=== PATIENT | male | born 1985 | race Two or more races ===

== ENCOUNTER 2019-10-31 15:56 | Emergency (ER) | payer SELFPAY ==
--- NOTE | 2019-10-31 16:04 | EDM.PDOC ---
ED HPI GENERAL MEDICAL PROBLEM - General Chief Complaint: ENT Problem Stated Complaint: THROAT AND EARS Time Seen by Provider: 10/31/19 15:58 Source of Information: Reports: Patient History Limitations: Reports: No Limitations - History of Present Illness INITIAL COMMENTS - FREE TEXT/NARRATIVE: HISTORY AND PHYSICAL: History of present illness: Patient is a 33-year-old male who presents to the emergency room with complaints of sore throat and swelling. He reports he was previously seen in the clinic and was given a one-time dose of the medication, he is unsure of what the m edication was but did not receive any prescriptions. He states his throat pain has worsened and he feels like he has some soft tissue swelling and is more painful to swallow. Patient denies any fever, chills, headache, change in vision, syncope or near syncope. Denies any chest pain, back pain, shortness of breath or cough. He denies any drooling or difficulty swallowing his saliva. Denies any abdominal pain, nausea, vomiting, diarrhea, constipation or dysuria. Has not noted any blood in urine or stool. Patient has been eating and drinking appropriately. Review of systems: As per history of present illness and below otherwise all systems reviewed and negative. Past medical history: As per history of present illness and as reviewed below otherwise noncontributory. Surgical history: As per history of present illness and as reviewed below otherwise noncontributory. Social history: See social history for further information Family history: As per history of present illness and as reviewed below otherwise noncontributory. Physical exam: General: Well-developed and well-nourished 33-year-old male. Alert and oriented. Nontoxic-appearing and in no acute distress. Vital signs are stable and have been reviewed by me. HEENT: Atraumatic, normocephalic, pupils equal and reactive bilaterally, negative for conjunctival pallor or scleral icterus, mucous membranes moist, TMs normal bilaterally, throat erythematous with fullness noted to the right tonsillar area, right sided lymphadenopathy - neck supple, nontender, trachea midline. No drooling or trismus noted. No meningeal signs. No hot potato voice noted. Lungs: Clear to auscultation, breath sounds equal bilaterally, chest nontender. Heart: S1S2, regular rate and rhythm without overt murmur Abdomen: Soft, nondistended, nontender. Negative for masses or hepatosplenomegaly. Negative for costovertebral tenderness. Skin: Intact, warm, dry. No lesions or rashes noted. Extremities: Atraumatic, moves all extremities per self without difficulty or deficits, negative for cords or calf pain. Neurovascular unremarkable. Neuro: Awake, alert, oriented. Cranial nerves II through XII unremarkable. Cerebellum unremarkable. Motor and sensory unremarkable throughout. Exam nonfocal. Notes: I am concerned for a peritonsillar abscess. Basic lab work and CT of the soft tissue neck will be done. Patient has a right peritonsillar region measuring 3.5 x 2.2 x 3.8 cm which is compatible with an early developing abscess. There is diffuse soft tissue swelling in the right peritonsillar region causing significant mass-effect to the left side and narrowing of the oropharynx. Multiple scattered lymph nodes within the neck which are most likely reactive. I did initially contact [facility] in [place], Dr Rosa took the phone call as she is available for ENT at this time. She is uncomfortable taking this patient or making a decision if the patient needs immediate follow-up or transfer at this time. She states she does maxillofacial and would prefer if I contact either [facility] or [facility] for further indication. Dr. Martínez in [facility]. He is agreeable to taking this patient tonight. Patient's airway is patent and he appears appropriate for private vehicle. He does have a ride to drive him there. Patient was encouraged to go directly to [facility] and be NPO. He voices understanding of the need for this immediate follow up. Denies any further questions or concerns. Diagnostics: CBC, CMP, CT soft tissue neck Therapeutics: IV fluid, Solu-Medrol, Toradol, morphine, clindamycin Impression: Peritonsillar abscess Plan: 1. You have an abscess/active infection in your tonsil that will require the learning disabilities resource teacher to drain. We have spoke with Dr. Martínez in [facility] at [facility], the ENT specialist who will drain this TONIGHT. 2. Please go directly to [facility] Emergency Room. 3. DO NOT EAT OR DRINK anything until you are told otherwise by the ENT specialist. 4. If at any time you should have difficulty breathing, worsening symptoms -as we discussed please call 911. Definitive disposition and diagnosis as appropriate pending reevaluation and review of above. throat Pain Score (Numeric/FACES): 10 - Related Data Allergies Allergy/AdvReac Type Severity Reaction Status Date / Time No Known Allergies Allergy Verified 10/31/19 16:04 Home Meds: Home Meds . [Unable to Verify Home Med List] 10/31/19 [History] ED ROS ENT - Review of Systems Review Of Systems: Comprehensive ROS is negative, except as noted in HPI. ED EXAM, ENT - Physical Exam Exam: See Below (See dictation) Course - Vital Signs Last Recorded V/S: Last Vital Signs Temp 98.3 F 10/31/19 16:05 Pulse 103 H 10/31/19 16:05 Resp 18 10/31/19 16:05 BP 146/83 H 10/31/19 16:05 Pulse Ox 97 10/31/19 16:05 - Orders/Labs/Meds Labs: Laboratory Tests 10/31/19 10/31/19 Range/Units 16:20 16:20 WBC 15.35 H (4.0-11.0) K/uL RBC 4.70 (4.50-5.90) M/uL Hgb 14.2 (13.0-17.0) g/dL Hct 44.1 (38.0-50.0) % MCV 93.8 (80.0-98.0) fL MCH 30.2 (27.0-32.0) pg MCHC 32.2 (31.0-37.0) g/dL RDW Std Deviation 47.2 (28.0-62.0) fl RDW Coeff of Reginaldo 14 (11.0-15.0) % Plt Count 236 (150-400) K/uL MPV 10.90 (7.40-12.00) fL Neut % (Auto) 79.7 (48.0-80.0) % Lymph % (Auto) 11.5 L (16.0-40.0) % [place] % (Auto) 7.7 (0.0-15.0) % Eos % (Auto) 0.8 (0.0-7.0) % Baso % (Auto) 0.3 (0.0-1.5) % Neut # (Auto) 12.2 H (1.4-5.7) K/uL Lymph # (Auto) 1.8 (0.6-2.4) K/uL [place] # (Auto) 1.2 H (0.0-0.8) K/uL Eos # (Auto) 0.1 (0.0-0.7) K/uL Baso # (Auto) 0.0 (0.0-0.1) K/uL Nucleated RBC % 0.0 /100WBC Nucleated RBCs # 0 K/uL Sodium 138 (136-148) mmol/L Potassium 3.8 (3.5-5.1) mmol/L Chloride 101 (98-107) mmol/L Carbon Dioxide 27.8 (21.0-32.0) mmol/L BUN 12 (7.0-18.0) mg/dL Creatinine 1.0 (0.8-1.3) mg/dL Est Cr Clr Drug Dosing 114.00 mL/min Estimated GFR (MDRD) > 60.0 ml/min Glucose 107 H (74-106) mg/dL Calcium 9.0 (8.5-10.1) mg/dL Total Bilirubin 0.6 (0.2-1.0) mg/dL AST 18 (15-37) IU/L ALT 35 (14-63) IU/L Alkaline Phosphatase 111 (46-116) U/L Total Protein 8.0 (6.4-8.2) g/dL Albumin 3.6 (3.4-5.0) g/dL Globulin 4.4 H (2.6-4.0) g/dL Albumin/Globulin Ratio 0.8 L (0.9-1.6) Meds: Medications Discontinued Medications Generic Name Dose Route Start Last Admin Trade Name Archieq PRN Reason Stop Dose Admin Sodium Chloride 1,000 mls @ 999 mls/hr 10/31/19 16:07 10/31/19 16:30 Normal Saline IV 10/31/19 17:07 999 mls/hr STAT ONE Administration Clindamycin Phosphate 600 mg/ 50 mls @ 100 mls/hr 10/31/19 16:40 10/31/19 16:59 Premix IV 10/31/19 17:09 100 mls/hr ONETIME ONE Administration Ketorolac Tromethamine 30 mg 10/31/19 16:40 10/31/19 17:00 Toradol IVPUSH 07/16/20 16:41 30 mg ONETIME ONE Administration Methylprednisolone Sodium Succinate 125 mg 10/31/19 16:07 10/31/19 16:30 Solu-Medrol IVPUSH 10/31/19 16:08 125 mg ONETIME ONE Administration Morphine Sulfate 4 mg 10/31/19 16:40 10/31/19 17:01 Morphine IVPUSH 10/31/19 16:41 4 mg ONETIME ONE Administration Departure - Departure Time of Disposition: 18:26 Disposition: Home, Self-Care 01 Clinical Impression: Peritonsillar abscess - Discharge Information Instructions: Peritonsillar Abscess, [id number] Referrals: PCP,None [Primary Care Provider] - Forms: ED Department Discharge Additional Instructions: The following information is given to patients seen in the emergency department who are being discharged to home. This information is to outline your options for follow-up care. We provide all patients seen in our emergency department with a follow-up referral. The need for follow-up, as well as the timing and circumstances, are variable depending upon the specifics of your emergency department visit. If you don't have a primary care physician on staff, we will provide you with a referral. We always advise you to contact your personal physician following an emergency department visit to inform them of the circumstance of the visit and for follow-up with them and/or the need for any referrals to a consulting specialist. The emergency department will also refer you to a specialist when appropriate. This referral assures that you have the opportunity for follow-up care with a specialist. All of these measure are taken in an effort to provide you with optimal care, which includes your follow-up. Under all circumstances we always encourage you to contact your private physician who remains a resource for coordinating your care. When calling for follow-up care, please make the office aware that this follow-up is from your recent emergency room visit. If for any reason you are refused follow-up, please contact the [facility] Emergency Department at and asked to speak to the emergency department charge nurse. [facility] [address] [place] [id number] [address] Thank you for choosing the [facility] emergency department in [place] for your medical needs today. It was a pleasure caring for you. You were seen in the emergency department for throat pain and swelling. 1. You have an abscess/active infection in your tonsil that will require the learning disabilities resource teacher to drain. We have spoke with Dr. Martínez in [facility] at [facility], the ENT specialist who will drain this TONIGHT. 2. Please go directly to [facility] Emergency Room. 3. DO NOT EAT OR DRINK anything until you are told otherwise by the ENT specialist. 4. If at any time you should have difficulty breathing, worsening symptoms -as we discussed please call 911. Sepsis Event Note (ED) - Focused Exam Vital Signs: Vital Signs Temp Pulse Resp BP Pulse Ox 10/31/19 16:05 98.3 F 103 H 18 146/83 H 97
[2019-10-31] MEDS ORDERED: methylPREDNISolone Sodium Succinate 125 MG/2 ML SDV IVPUSH ONE (16:07)
[2019-10-31] MEDS ORDERED: Sodium Chloride 0.9% 1,000 ML IV ONE (16:07)
[2019-10-31] MEDS ORDERED: Morphine 4 MG/ML Syringe IVPUSH ONE (16:40)
[2019-10-31] MEDS ORDERED: Clindamycin Phosphate in D5W 600 MG in Premix Bag 1 BAG IV ONE ×2 (16:40)
[2019-10-31] MEDS ORDERED: Ketorolac 30 MG/ML SDV IVPUSH ONE (16:40)
[2019-10-31 16:56] LABS: BLOOD UREA NITROGEN,BUN 12 mg/dL (7.0-18.0); CARBON DIOXIDE,CO2 27.8 mmol/L (21.0-32.0); CHLORIDE,CL 101 mmol/L (98-107); GLUCOSE RANDOM 107 mg/dL (74-106); POTASSIUM,K 3.8 mmol/L (3.5-5.1); SODIUM,NA 138 mmol/L (136-148)
--- NOTE | 2019-10-31 17:58 | CT ---
CT neck Technique: Multiple axial sections through the neck were obtained. Intravenous contrast was utilized. Reconstructed coronal and sagittal images were obtained. Findings: Low density areas noted within the right peritonsillar region measuring 3.5 cm by 2.2 cm x 3.8 cm. This is felt compatible with early developing abscess. Diffuse soft tissue swelling is seen within the right peritonsillar region causing significant mass-effect to the left side and narrowing of the oral pharynx. No left-sided abnormality is seen. Prevertebral soft tissues are within normal limits. Epiglottis not well seen due to adjacent mucus. Diffusely enlarged uvula is also noted Multiple scattered lymph nodes within the neck which are most likely reactive. Visualized paranasal sinuses show nothing acute. Impression: 1. Large developing abscess within the right peritonsillar region, measurements as noted above. 2. Diffuse soft tissue swelling is also noted within the right peritonsillar region showing increased soft tissues across midline which causes narrowing of the hypopharynx. 3. Diffuse edema within the uvula. 4. Poorly seen epiglottis due to adjacent mucus. 5. Multiple lymph nodes within the neck which are likely reactive. Diagnostic code #5 This report was dictated in MDT
[2019-10-31] MEDS ORDERED: Iopamidol 755 Mg/ML 100 ML Bottle IVPUSH STA (18:59)
== END 2019-10-31 18:45 | disposition home or self-care (01) ==
LOC: MW.ED 15:56
DX: J36 Peritonsillar abscess (principal)
CPT/HCPCS: 36415; 70491; 80053; 85025; 96365; 96375; 99284; J1885; J2270; J2930; J7030; Q9967; S0077; 99283; J3490

== ENCOUNTER 2020-12-13 15:43 | Emergency (ER) | payer OTHER ==
[2020-12-13] MEDS ORDERED: Ketorolac 15 MG/ML SDV IM ONE (15:50)
--- NOTE | 2020-12-13 16:36 | CR ---
Indication: Left shoulder injury. Technique: Three views of the left shoulder. Comparison: None Findings: The humeral head is seated within the glenoid. No acute fracture or subluxation is identified. Very minimal degenerative changes are identified at the acromioclavicular joint space. Impression: No acute fracture Dictated by Marychuy Diez MD @ 12/13/2020 4:35:[address] Marychuy Diez @ Dec 13 2020 4:35PM
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
== END 2020-12-13 17:56 | disposition home or self-care (01) ==
LOC: MW.ED 15:43
DX: S46.912A Strain of unspecified muscle, fascia and tendon at shoulder and upper arm level, left arm, initial encounter (principal); S16.1XXA Strain of muscle, fascia and tendon at neck level, initial encounter; V49.40XA Driver injured in collision with unspecified motor vehicles in traffic accident, initial encounter; Y92.410 Unspecified street and highway as the place of occurrence of the external cause
CPT/HCPCS: 73030; 96372; 99284; J1885; 99283